=== PATIENT | female | born 1960 | race Two or more races ===

== ENCOUNTER 2018-02-15 14:00 | Outpatient (AMBR) | payer MEDICAID, SELFPAY ==
--- NOTE | 2018-02-12 15:09 | PT.ODAYNRPT ---
PT Outpatient Daily Note Date of Service: February 12, 2018 OP Daily Note Visit Reasons: back pain Outpatient Physical Therapy Treatment Date: 02/12/18 Subjective: pt's back is not as pain as other days but still has discomfort. Objective: see flow sheet. Assessment: pt uses HP prior to ther ex as it gets too hot to lay on it during ther ex. muscle fatigue with S/L clam shells using thera band for BLE. corrected pt's pelvis during sidelying clam shells as she tends to rotate posteriorly so advised pt to keep pelvis in neutral with hip abduction. after correction pt was able to perform exercise better. pt has difficulty with SLR as she can not perform without assistance. SLR seems to cause increase in low back pain per pt. Plan: continue POC per PT. Length of Time (minutes) of Treatment: 30 Minutes Office Procedures PT Procedures PT Date of Service: 02/12/18 Therapeutic Exercise 30 minutes: Yes
--- NOTE | 2018-02-15 16:05 | PT.ODAYNRPT ---
PT Outpatient Daily Note Date of Service: February 15, 2018 OP Daily Note Visit Reasons: back pain Outpatient Physical Therapy Treatment Date: 02/15/18 Subjective: pt reported walking with son daily for 2 miles and has been feeling better. her back pain is improving. Objective: see flow sheet. Assessment: pt was able to complete all ther ex and reps with less complaining of the L hip. L hip continues to bother her due to past medical Hx of arthritis. pt managed to get thru the reps. pt was able to in and off the bed on her own. overall pt seems to be doing a lot better. added resistance to the sci-fit in which did not cause increase in pain of the hip or back. advised pt to continue the daily walks. Plan: continue POC per PT. Length of Time (minutes) of Treatment: 30 Minutes Office Procedures PT Procedures PT Date of Service: 02/15/18 Therapeutic Exercise 30 minutes: Yes PT Procedures PT Date of Service: 02/12/18 Therapeutic Exercise 30 minutes: Yes
== END 2018-03-10 23:59 ==
PROVIDERS: PCP Family Medicine; Referring Provider Family Medicine; Visit Provider Physician Assistant
DX: I10 Essential (primary) hypertension (principal)
CPT/HCPCS: 97110

== ENCOUNTER 2024-09-03 09:00 | Outpatient (RCR) | payer MEDICAID, SELFPAY ==
--- NOTE | 2024-08-26 09:59 | PTNOTE_ITS ---
PT OP Initial Eval Patient Information Outpatient Physical Therapy Treatment Date: 08/26/24 Visit Reasons: left hip and knee pain Medical Diagnosis: M16.12 M23.92 Treatment Dx #1: L hip pain Treatment Dx #2: L knee pain Start of Care: 08/26/24 Date of Onset: June 2023 Smoking Status Smoking Status: Never smoker Initial Assessment Subjective: Pt is 63 yr old female who tripped over a parking concrete stop and c/o L hip and knee pain. Increased pain in L knee with prolonged sitting, getting up from a low chair and prolonged standing more than 1 hr. She points to the patella as site of pain. The L hip hurts when she sleeps on that side and she points to the lateral hip around the GT. PMH: HTN, DM, allergies Imaging: Xray of L knee and hip in EMR Mild bilateral hip osteoarthritis. L knee ACL sprain Pt goal: to lessen the L hip and knee pain? Objective: L hip AROM: Flexion: 80 deg with pain Abduction: 30 deg in supine, 10 deg in sidelying TTP: moderate of L greater trochanter region L knee AROM: Flexion: 90 deg with pain over patella Extension: full Patella compression: positive with crepitus SLR: 15 deg with pain Strength: Hip flexion: 3-/5 Abd: 3-/5 in SL Varus stress: positive gapping Assessment: Pt presents with L hip lateral pain around the greater trochanter and limited SLR and flexion ROM consistent with greater trochanteric bursitis. Pt has decreased ROM of the L knee consistent with patellofemoral pain and varus gappi ng. Pt requires skilled therapy to meet goals and has fair rehab potential. Short Term and [employer] Specialist Goals 1. Ind with HEP 2. Decreased TTP of L lateral GT region from mod to min 3. Improved hip flexion ROM to at least 90 deg and SLR to 45 deg 4. Pt will transfer from sit to stand x5 with <=3/10 L knee and hip pain Treatment Plan ? 1. Manual therapy ? 2. Therex ? 3. Modalities as indicated, moist heat, ice, estim Frequency and Duration: 1-2x a week for 12 Rx visits plus evaluation Certification Dates: 08/26/24 to 11/23/24 Procedure Charges OP PT Eval Mod Complex 30 minutes: Yes
--- NOTE | 2024-09-03 09:55 | PT.ODAYNRPT ---
PT Outpatient Daily Note OP Daily Note Outpatient Physical Therapy Treatment Date: 09/03/24 Visit Reasons: left hip and knee pain Subjective: Pt c/o L hip pain that is worse with bending and managing steps/stairs. Objective: Please see flow sheet for ther ex list. Assessment: Interventions completed with minimal pain and fatigue. Plan: Continue with POC, assess response to treatment. Length of Time (minutes) of Treatment: 30 Minutes Procedure Charges Therapeutic Exercise 30 minutes: Yes
== END 2024-09-10 23:59 | disposition home or self-care (01) ==
LOC: CPTX 09:00
PROVIDERS: PCP Orthopaedic Surgery; Referring Provider Orthopaedic Surgery; Visit Provider Orthopaedic Surgery
DX: M25.552 Pain in left hip (principal); M25.562 Pain in left knee; M16.12 Unilateral primary osteoarthritis, left hip; M23.92 Unspecified internal derangement of left knee
CPT/HCPCS: 97110; 97162

== ENCOUNTER 2024-10-09 13:30 | Outpatient (RCR) | payer MEDICAID, SELFPAY ==
--- NOTE | 2024-09-16 15:36 | PT.ODAYNRPT ---
PT Outpatient Daily Note OP Daily Note Outpatient Physical Therapy Treatment Date: 09/16/24 Visit Reasons: Left hip pain/knee pain Subjective: Pt c/o knee and hip pain. Objective: Please see flow sheet for ther ex list. Assessment: Regressed interventions to accommodate reported pain. Plan: Continue with POC. Length of Time (minutes) of Treatment: 30 Minutes Procedure Charges Therapeutic Exercise 30 minutes: Yes
--- NOTE | 2024-09-18 17:25 | PT.ODAYNRPT ---
PT Outpatient Daily Note OP Daily Note Outpatient Physical Therapy Treatment Date: 09/18/24 Visit Reasons: Left hip pain/knee pain Subjective: Continued L lateral hip pain Objective: See F/S for therex MT: STM L GT region x7' Assessment: Mod/high tissue irritability of L GT region Plan: Continue per POC Length of Time (minutes) of Treatment: 30 Minutes Procedure Charges Therapeutic Exercise 30 minutes: Yes
--- NOTE | 2024-09-23 18:00 | PT.ODAYNRPT ---
PT Outpatient Daily Note OP Daily Note Outpatient Physical Therapy Treatment Date: 09/23/24 Visit Reasons: Left hip pain/knee pain Subjective: Less pain of L hip attributed to manual therapy Objective: See F/S for therex MT: STM L GT region x7' Assessment: Mod/high tissue irritability of L GT region Plan: Continue per POC Length of Time (minutes) of Treatment: 30 Minutes Procedure Charges Therapeutic Exercise 30 minutes: Yes
--- NOTE | 2024-09-25 16:22 | PT.ODAYNRPT ---
PT Outpatient Daily Note OP Daily Note Outpatient Physical Therapy Treatment Date: 09/25/24 Visit Reasons: Left hip pain/knee pain Subjective: Pt reports pain continues to be present. pt mentioned that she has difficulty performing ADLs and can not be on her feet for prolonged periods. Objective: Please see flow sheet for ther ex list. Assessment: Progress slow due to pt pain reponse. Plan: Continue with POC. Length of Time (minutes) of Treatment: 30 Minutes Procedure Charges Therapeutic Exercise 30 minutes: Yes
--- NOTE | 2024-10-02 14:24 | PT.ODAYNRPT ---
PT Outpatient Daily Note OP Daily Note Outpatient Physical Therapy Treatment Date: 10/02/24 Visit Reasons: Left hip pain/knee pain Subjective: Pt reports hip feels the same, continues to have pain. Objective: Please see flow sheet for ther ex list. Assessment: Pt continues to report hip pain delaying intervention progression. Plan: Continue with POC. Length of Time (minutes) of Treatment: 30 Minutes Procedure Charges Therapeutic Exercise 30 minutes: Yes
--- NOTE | 2024-10-09 13:54 | PT.ODAYNRPT ---
PT Outpatient Daily Note OP Daily Note Outpatient Physical Therapy Treatment Date: 10/09/24 Visit Reasons: Left hip pain/knee pain Subjective: Pt reports no progress with symptoms. Objective: Please see flow sheet for ther ex list. Assessment: Progress slow in clinic due to pt pain response. Plan: Continue with POC. Length of Time (minutes) of Treatment: 30 Minutes Procedure Charges Therapeutic Exercise 30 minutes: Yes
== END 2024-10-11 23:59 | disposition home or self-care (01) ==
LOC: CPTX 13:30
PROVIDERS: PCP Orthopaedic Surgery; Referring Provider Orthopaedic Surgery; Visit Provider Orthopaedic Surgery
DX: M25.562 Pain in left knee (principal); M25.552 Pain in left hip; M16.12 Unilateral primary osteoarthritis, left hip; M23.92 Unspecified internal derangement of left knee; I10 Essential (primary) hypertension; E11.9 Type 2 diabetes mellitus without complications
CPT/HCPCS: 97110

== ENCOUNTER 2024-10-23 08:30 | Outpatient (RCR) | payer MEDICAID, SELFPAY ==
--- NOTE | 2024-10-17 09:56 | PT.ODAYNRPT ---
PT Outpatient Daily Note OP Daily Note Outpatient Physical Therapy Treatment Date: 10/17/24 Visit Reasons: LEFT HIP AND KNEE PAIN Subjective: Pt reports hips continue to be painful Objective: Please see flow sheet for ther ex list. Assessment: Pt demonstrates poor activity tolerance due to pain response. STM performed to l/s and L hip region, pt tolerated well. Plan: Continue with pOC. Length of Time (minutes) of Treatment: 30 Minutes Procedure Charges Therapeutic Exercise 30 minutes: Yes
--- NOTE | 2024-10-23 08:58 | PT.ODS1RPT ---
PT OP Progress/Discharge Note Date of Service: 10/23/24 Progress Note/DC Note Progress Note/Discharge Note: Progress Note Patient Information Visit Reasons: LEFT HIP AND KNEE PAIN Service Continue Service or Discharge: Continue Service Status Subjective: Good improvement with less L hip pain since starting therapy. She can lay on that side with less pain. Wants to continue with therapy. Objective: L hip AROM: Flexion: 85 deg SLR: 30 deg Strength: hip flexion: 3-/5 Abduction: 3/5 in sidelying Assessment: Pt has attended 8/8 Rx visits with good progress with therapy goals. Pt has improved SLR ROM since the eval but shy of goal of 45 deg. Pt has decreased TTP of L lateral GT from mod to min to min to meet that goal. Pt would benefit from continued therapy in order to improve hip flexion and SLR ROM Plan: Request additional visits x8 to meet goals. Extend POC dates from 11/23 to 01/23/25 Procedure Charges Therapeutic Exercise 30 minutes: Yes
== END 2024-11-08 23:59 | disposition home or self-care (01) ==
LOC: CPTX 08:30
PROVIDERS: PCP Orthopaedic Surgery; Referring Provider Orthopaedic Surgery; Visit Provider Orthopaedic Surgery
DX: M25.552 Pain in left hip (principal); M25.562 Pain in left knee; M16.12 Unilateral primary osteoarthritis, left hip; M23.92 Unspecified internal derangement of left knee
CPT/HCPCS: 97110

== ENCOUNTER 2024-11-27 10:30 | Outpatient (RCR) | payer MEDICAID, SELFPAY ==
--- NOTE | 2024-11-20 12:00 | PT.ODAYNRPT ---
PT Outpatient Daily Note OP Daily Note Outpatient Physical Therapy Treatment Date: 11/20/24 Visit Reasons: Left hip/knee pain Subjective: Less L hip pain since last visit but the L side of the L/S hurts today Objective: See F/S for therex MT: SERGIOT rotary L/S x1 Assessment: Good response to manual therapy to reduce LBP Plan: Continue as tolerated Length of Time (minutes) of Treatment: 30 Minutes Procedure Charges Therapeutic Exercise 30 minutes: Yes
--- NOTE | 2024-11-27 11:42 | PT.ODAYNRPT ---
PT Outpatient Daily Note OP Daily Note Outpatient Physical Therapy Treatment Date: 11/27/24 Visit Reasons: Left hip/knee pain Subjective: Pt reports hip is feeling really stiff and tight today, almost like it is stuck. Objective: Please see flows sheet for ther ex list. Assessment: Pt unable to perform SLR , as per pt she has high pain with attempting to lift L LE up when laying in supine. Plan: Continue with POC. Length of Time (minutes) of Treatment: 30 Minutes Procedure Charges Therapeutic Exercise 30 minutes: Yes
== END 2024-12-09 23:59 | disposition home or self-care (01) ==
LOC: CPTX 10:30
PROVIDERS: PCP Orthopaedic Surgery; Referring Provider Orthopaedic Surgery; Visit Provider Orthopaedic Surgery
DX: M25.562 Pain in left knee (principal); M25.552 Pain in left hip; M16.12 Unilateral primary osteoarthritis, left hip; M23.92 Unspecified internal derangement of left knee; I10 Essential (primary) hypertension; E11.9 Type 2 diabetes mellitus without complications
CPT/HCPCS: 97110

== ENCOUNTER 2025-01-08 10:00 | Outpatient (RCR) | payer MEDICAID, SELFPAY ==
--- NOTE | 2024-12-11 11:27 | PT.ODAYNRPT ---
PT Outpatient Daily Note OP Daily Note Outpatient Physical Therapy Treatment Date: 12/11/24 Visit Reasons: Left hip/Knee pain Subjective: Less L hip pain since last visit but the L side of the L/S hurts today Objective: See F/S for therex MT: STM L ITB x7' Assessment: Good response to manual therapy to reduce L ITB pain Plan: Continue as tolerated Length of Time (minutes) of Treatment: 30 Minutes Procedure Charges Therapeutic Exercise 30 minutes: Yes
--- NOTE | 2024-12-25 11:05 | PT.ODAYNRPT ---
PT Outpatient Daily Note OP Daily Note Outpatient Physical Therapy Treatment Date: 12/25/24 Visit Reasons: Left hip/Knee pain Subjective: Pt reports L hip is doing better, notices less pain. As per pt she has been compliant with HEP. Objective: Please see flow sheet for ther ex list. Assessment: Pt demonstrates decrease pain with added repetitions during exercises indicating progress. Plan: Continue with poC. Length of Time (minutes) of Treatment: 30 Minutes Procedure Charges Therapeutic Exercise 30 minutes: Yes
--- NOTE | 2025-01-01 11:23 | PT.ODAYNRPT ---
PT Outpatient Daily Note OP Daily Note Outpatient Physical Therapy Treatment Date: 01/01/25 Visit Reasons: Left hip/Knee pain Subjective: Pt reports progress with L hip symptoms. Notices she has been having less pain. Objective: Please see flow sheet for ther ex list. Assessment: Pt presents in clinic with decrease pain allowing for progression of interventions. Plan: Continue with POC. Length of Time (minutes) of Treatment: 30 Minutes Procedure Charges Therapeutic Exercise 30 minutes: Yes
--- NOTE | 2025-01-08 10:45 | PT.ODAYNRPT ---
PT Outpatient Daily Note OP Daily Note Outpatient Physical Therapy Treatment Date: 01/08/25 Visit Reasons: Left hip/Knee pain Subjective: Pt reports L hip pain has reduced since starting PT. Pt c/o cramping during stationary bike, not able to complete assigned time. Objective: Please see flow sheet for ther ex list. Assessment: Accommodated interventions due to c/o cramping, interventions completed with rest breaks in between. Plan: Continue with POC. Length of Time (minutes) of Treatment: 30 Minutes Procedure Charges Therapeutic Exercise 30 minutes: Yes
== END 2025-01-08 23:59 | disposition home or self-care (01) ==
LOC: CPTX 10:00
PROVIDERS: PCP Orthopaedic Surgery; Referring Provider Orthopaedic Surgery; Visit Provider Orthopaedic Surgery
DX: M25.562 Pain in left knee (principal); M25.552 Pain in left hip; M16.12 Unilateral primary osteoarthritis, left hip; M23.92 Unspecified internal derangement of left knee; I10 Essential (primary) hypertension; E11.9 Type 2 diabetes mellitus without complications
CPT/HCPCS: 97110

== ENCOUNTER 2025-01-29 10:00 | Outpatient (RCR) | payer MEDICAID, SELFPAY ==
--- NOTE | 2025-01-15 10:39 | PT.ODAYNRPT ---
PT Outpatient Daily Note OP Daily Note Outpatient Physical Therapy Treatment Date: 01/15/25 Visit Reasons: Left knee/hip pain Subjective: Pt reports L hip bothering her today, is having more pain that usual. Objective: Please see flow sheet for ther ex list. Assessment: Regressed interventions to accommodate reported pain. Plan: Continue with poC. Length of Time (minutes) of Treatment: 30 Minutes Procedure Charges Therapeutic Exercise 30 minutes: Yes
--- NOTE | 2025-01-22 13:44 | PT.ODAYNRPT ---
PT Outpatient Daily Note OP Daily Note Outpatient Physical Therapy Treatment Date: 01/22/25 Visit Reasons: Left knee/hip pain Subjective: Pt reports L hip is doing ok today, c/o some soreness. Objective: Please see flow sheet for ther ex list. Assessment: Pt c/o muscle cramp with sci fit stationary bike exercise not able to complete exercises. Muscle cramp with pt ambulating a bit in clinic. Plan: Continue with poC. Length of Time (minutes) of Treatment: 30 Minutes Procedure Charges Therapeutic Exercise 30 minutes: Yes
--- NOTE | 2025-01-29 10:40 | PT.ODAYNRPT ---
PT Outpatient Daily Note OP Daily Note Outpatient Physical Therapy Treatment Date: 01/29/25 Visit Reasons: Left knee/hip pain Subjective: Pt reports L hip is doing better. Objective: Please see flow sheet for ther ex list. Assessment: Pt presents in clinic with decrease pain indicating progress. Plan: Continue with pOC. Length of Time (minutes) of Treatment: 30 Minutes Procedure Charges Therapeutic Exercise 30 minutes: Yes
== END 2025-02-08 23:59 | disposition home or self-care (01) ==
LOC: CPTX 10:00
PROVIDERS: PCP Orthopaedic Surgery; Referring Provider Orthopaedic Surgery; Visit Provider Orthopaedic Surgery
DX: M25.552 Pain in left hip (principal); M25.562 Pain in left knee; I10 Essential (primary) hypertension; E11.9 Type 2 diabetes mellitus without complications; M16.12 Unilateral primary osteoarthritis, left hip; M23.92 Unspecified internal derangement of left knee
CPT/HCPCS: 97110